=== PATIENT | male | born 1995 | race Caucasian/White ===

== ENCOUNTER 2023-04-30 00:38 | Emergency (ER) | payer SELFPAY ==
[2023-04-30 00:40] VITALS: BP 130/83; BMI 22.0
[2023-04-30 01:17] LABS: % Basophils 0.5 % (0-2); % Eosinophils 4.6 % (0-6); % Immature Granulocytes 0.3 % (0-0.5); % Lymphocytes 27.4 % (20.5-51.1); % Monocytes 13.1 % (1.7-9.3); % Neutrophils 54.1 % (42.2-75.2); Absolute Eosinophils 0.3 10^3/uL (0-0.7); Absolute Lymphocytes 1.7 10^3/uL (1.2-3.4); Absolute Monocytes 0.8 10^3/uL (0.1-0.6); Absolute Neutrophils 3.3 10^3/uL (1.4-6.5); Hematocrit 33.1 % (39.0-52.0); Hemoglobin 11.4 g/dL (13.0-18.0); Mean Corp Hgb Conc. 34.4 g/dL (33.0-37.0); Mean Corpuscular Hgb 28.9 pg (27.0-31.0); Mean Corpuscular Volume 83.8 fL (80.0-94.0); Mean Platelet Volume 9.9 fL (7.4-10.4); Nucleated Red Blood Cells % 0 % (-); Platelet Count 211 10^3/uL (130-400); Red Blood Cell Count 3.95 10^6/uL (4.70-6.10); Red Cell Dist. Width 13.2 % (11.5-14.5); White Blood Cell Count 6.1 10^3/uL (4.8-10.8)
[2023-04-30 01:52] LABS: ALT (SGPT) 31 U/L (0-50); AST (SGOT) 31 U/L (17-59); Albumin 3.5 g/dl (3.5-5.0); Alkaline Phosphatase 49 U/L (38-126); Blood Urea Nitrogen 4 mg/dl (9-20); Calcium 8.7 mg/dl (8.4-10.2); Carbon Dioxide 30 mmol/L (22-30); Chloride 102 mmol/L (98-107); Estimated Creatinine Clearance > 125 ml/min; Glucose 98 mg/dl (70-99); Potassium 3.5 mmol/L (3.5-5.1); Sodium 140 mmol/L (135-145); Total Bilirubin 0.4 mg/dl (0.2-1.3); Total Protein 6.1 g/dl (6.3-8.2); eGFR > 60.00
--- NOTE | 2023-04-30 02:15 | ED.GENMED ---
History of Present Illness
General
Chief Complaint: Fall
Source: patient
Exam Limitations: none
Time Seen by Provider: 04/30/23 00:54
Travel History
Have you had any contact with someone who has COVID-19?: No
Do you have any symptoms of coronavirus? Fever > 100 degrees, chills, cough, shortness of breath, sore throat, loss of taste or smell, muscle aches, or headache?: No
History of Present Illness
History of Present Illness:
27-year-old male presents with a left ankle injury. He states he twisted his ankle about a week ago. The patient admits he is homeless and walks a lot. He states he sometimes does not sleep at night and just walks. Patient states that the
swelling seemed to get worse. No fevers, no numbness, no tingling
Past History
Past History
ED Past Medical History: Psychiatric, Other (Optical Migraines, previous inguinal hernia repair) and Other (Drug and alcohol abuse)
ED Past Surgical History: None
Social History
Tobacco: Smoker
Alcohol: None
Personal: Single
Living: other (Staying with friends, soon to be homeless)
Family History
Family History: Negative Diabetes, Hypertension or CAD
Phy Exam
Physical Exam
Physical Exam:
CONSTITUTIONAL Vital signs reviewed, Patient alert and oriented to person, place and time. Well-appearing
HEAD atraumatic, normocephalic.
EYES eyelids normal to inspection, Extraocular muscles intact, Conjunctiva normal, Sclera normal.
NECK normal range of motion, Trachea midline, no jugular venous distention.
RESP no respiratory distress
BACK No obvious deformities
UPPER EXTREMITY Gross Range of motion normal, gross motor strength normal
LOWER EXTREMITY Gross range of motion normal, Gross motor strength normal. Bilateral lower extremity edema noted. Left greater than right. Moderate lateral and medial malleolus tenderness to left ankle. Normal distal pulses. Mild redness
throughout the left lower extremity
NEURO Speech normal, No focal motor deficits include, Eunice coma scale 15, Memory normal, Cranial Nerves intact to screening exam.
SKIN Skin warm, dry, and normal in color.
PSYCHIATRIC Patient oriented to person place and time, Normal affect.
Course
Orders/Labs/Results
Orders:
Orders
04/30/23 00:47
CR Ankle - Left Min 3 Views Urgent
Reason For Exam: fall, ankle swelling
04/30/23 01:09
Complete Blood Count/With Diff Urgent
Comprehensive Metabolic Panel Urgent
Abnormal Lab Results
04/30/23
01:09
RBC 3.95 L 10^6/uL
(4.70-6.10)
Hgb 11.4 L g/dL
(13.0-18.0)
Hct 33.1 L %
(39.0-52.0)
Absolute Monos (auto) 0.8 H 10^3/uL
(0.1-0.6)
Monocytes % 13.1 H %
(1.7-9.3)
BUN 4 L mg/dl
(9-20)
Creatinine 0.6 L mg/dL
(0.7-1.3)
Total Protein 6.1 L g/dl
(6.3-8.2)
04/30/23 01:09
04/30/23 01:09
Vital Signs
Initial and Last Documented VS:
Initial Vital Signs
Temp Pulse Resp BP Pulse Ox
98.2 F 71 18 130/83 98
04/30/23 00:40 04/30/23 00:40 04/30/23 00:40 04/30/23 00:40 04/30/23 00:40
Last Documented Vital Signs
Temp Pulse Resp BP Pulse Ox
98.2 F 71 18 130/83 98
04/30/23 00:40 04/30/23 00:40 04/30/23 00:40 04/30/23 00:40 04/30/23 00:40
MDM/Problems Addressed
MDM/Problems Addressed:
Lower extremity edema, ankle injury
*Radiology
Radiology exam reviewed: all reviewed NAD by ED Provider
*Pulse Oximetry
Patient hypoxic: no
*Critical Care Note
Total Time (30-74mins, 75-104mins- exclusive of procedures): Not Applicable
Data Reviewed
Source: patient
Patient Management
Escalation/DeEscalation of care consider admission/obs:
Patient appears well. Does have a swollen left and right lower extremity left greater than right. Suspect related to the trauma but given the mild redness, will cover with antibiotics as well. Torsten wrap for compression, air splint. Okay for
discharge
ED Attending Note
-
Portions of this chart may have been created with voice recognition software.� Occasional wrong word or��sound alike� substitutions may have occurred due to the inherent limitations of voice recognition software.
Discharge Plan
Departure
Patient Disposition: Home (Routine Discharge)
Date of Disposition: 04/30/23
Time of Disposition: 02:23
Patient with high blood pressure during this ER visit?: No
Discharge Problem:
Ankle injury, Edema
Instructions: Ankle Sprain (DC), Swelling
Prescriptions:
No Action
aripiprazole 10 MG tablet
15 mg PO DAILY
carbamazepine [Tegretol XR] 400 MG tablet extended release 12 hr
400 mg PO BID
Referrals:
[facility] [Outside]
NONE,* [Family Provider] -
Activity Restrictions/Additional Instructions:
Please elevate your legs when possible. Return for fevers, increased swelling, worsening symptoms or any other concerns. Please see the clinic in follow-up in the next 1 to 2 weeks.
Interventions
Interventions:
*Risk Screen - Suicide Last Done: 04/30/23 00:42
*General Assessment Last Done: 04/30/23 00:42
*Neglect/Abuse Screening Last Done: 04/30/23 00:42
*ED COVID-19 Vaccine History Last Done: 04/30/23 00:42
ED-Musculoskeletal Assessment Last Done: 04/30/23 00:44
ED- Neurological Assessment Last Done: 04/30/23 00:44
ED-Skin Assessment Last Done: 04/30/23 00:44
[2023-04-30] MEDS: KEFLEX 500 MG PO (02:35)
== END 2023-04-30 02:45 | disposition home or self-care (01) ==
LOC: EMR 00:38
PROVIDERS: EMERGENCY PHYSICIAN Emergency Medicine
DX: S99.912A Unspecified injury of left ankle, initial encounter (principal); X50.1XXA Overexertion from prolonged static or awkward postures, initial encounter; R60.0 Localized edema; F17.200 Nicotine dependence, unspecified, uncomplicated; Z59.00 Homelessness unspecified
CPT/HCPCS: 99284; 73610; 80053; 85025

== ENCOUNTER 2023-05-24 17:45 | Emergency (ER) | payer SELFPAY ==
[2023-05-24 17:49] VITALS: BP 107/71
[2023-05-24 18:08] LABS: % Basophils 0.8 % (0-2); % Eosinophils 4.5 % (0-6); % Immature Granulocytes 0.5 % (0-0.5); % Lymphocytes 27.5 % (20.5-51.1); % Monocytes 12.9 % (1.7-9.3); % Neutrophils 53.8 % (42.2-75.2); Absolute Basophils 0.1 10^3/uL (0-0.2); Absolute Eosinophils 0.3 10^3/uL (0-0.7); Absolute Lymphocytes 1.7 10^3/uL (1.2-3.4); Absolute Monocytes 0.8 10^3/uL (0.1-0.6); Absolute Neutrophils 3.3 10^3/uL (1.4-6.5); Hematocrit 39.4 % (39.0-52.0); Hemoglobin 13.2 g/dL (13.0-18.0); Mean Corp Hgb Conc. 33.5 g/dL (33.0-37.0); Mean Corpuscular Hgb 28.8 pg (27.0-31.0); Mean Corpuscular Volume 85.8 fL (80.0-94.0); Mean Platelet Volume 9.7 fL (7.4-10.4); Nucleated Red Blood Cells % 0 % (-); Platelet Count 192 10^3/uL (130-400); Red Blood Cell Count 4.59 10^6/uL (4.70-6.10); Red Cell Dist. Width 13.8 % (11.5-14.5)
[2023-05-24 18:28] LABS: ALT (SGPT) 49 U/L (0-50); AST (SGOT) 34 U/L (17-59); Albumin 4.2 g/dl (3.5-5.0); Alkaline Phosphatase 61 U/L (38-126); Blood Urea Nitrogen 12 mg/dl (9-20); Calcium 9.4 mg/dl (8.4-10.2); Carbon Dioxide 29 mmol/L (22-30); Chloride 104 mmol/L (98-107); Glucose 92 mg/dl (70-99); Potassium 4.3 mmol/L (3.5-5.1); Sodium 137 mmol/L (135-145); Total Bilirubin 0.7 mg/dl (0.2-1.3); eGFR > 60.00
--- NOTE | 2023-05-24 20:04 | ED.GENMED ---
History of Present Illness
General
Chief Complaint: Musculo-Skeletal Complaint
Source: patient and records
Exam Limitations: none
Time Seen by Provider: 05/24/23 19:42
Nursing documentation reviewed up to this point in time: agreed with
Travel History
Have you had any contact with someone who has COVID-19?: No
Do you have any symptoms of coronavirus? Fever > 100 degrees, chills, cough, shortness of breath, sore throat, loss of taste or smell, muscle aches, or headache?: No
History of Present Illness
History of Present Illness:
Patient is a 28-year-old male who was asleep when I entered the room and presents with sharp anterior chest pain that increased somewhat with breathing and has had a cough it has been nonproductive for the past 2 days. Patient sprained his ankle a
couple weeks ago and that seems to be getting better. Patient denies fever or chills. Patient states he is minimally short of breath. Patient denies any palpitations. Patient does smoke. Patient denies any weight changes. Patient denies any GI
or symptoms. Patient denies any recent illnesses. Patient states his ankle is feeling much better and outside of the ankle he has no leg pain or swelling.
Past History
Past History
ED Past Medical History: Other (Optical Migraines, previous inguinal hernia repair) and Other (Drug and alcohol abuse)
ED Past Surgical History: None
Social History
Tobacco: Smoker
Alcohol: None
Personal: Single
Living: other (Staying with friends, soon to be homeless)
Family History
Family History: Negative Diabetes, Hypertension or CAD
Review of Systems
Review of Systems
All Other Systems: ROS reviewed and negative except as documented in HPI and ROS
Constitutional: Reports no symptoms
EENT: Reports no symptoms
Respiratory: Reports cough and trouble breathing
Cardiac: Reports chest pain; Denies palpitations
ABD/GI: Reports no symptoms
: Reports no symptoms
Musculoskeletal: Reports joint pain (Left ankle); Denies edema
Skin: Reports no symptoms
Neurological: Reports no symptoms
Hematologic/Lymphatic: Reports no symptoms
Phy Exam
Physical Exam
Physical Exam:
Physical Exam
General: No apparent distress, alert and appropriate, well nourished, well hydrated
HENT: Normocephalic, supple with no lymphadenopathy, no thyromegaly
Eyes: Clear sclera, conjuctiva without injection
Heart: Regular rhythm and rate. No S3, S4. No murmur.
Lungs: No respiratory distress, no stridor, lung sounds clear and equal bilaterally, chest wall symmetrical and mildly reproducible tenderness without crepitus or deformity or subcutaneous emphysema
Abdomen: Soft, nontender, no organomegaly, BS good
Neuro: Alert and oriented x 3, CN II - XII intact, no motor focality, no cerebellar dysfunction
Skin: no rash
Psychiatric: well kept. interactive and cooperative
Extremities: No edema, cyanosis, tenderness
Scores
Heart Failure Risk
Heart Failure Risk Score: Not Applicable
Heart Score for Chest Pain Patients
STEMI patient?: Not applicable
Withdrawal Assessment of Alcohol
Withdrawal Assessment Completed?: Not applicable
Course
Orders/Labs/Results
Orders:
Orders
05/24/23 17:52
Electrocardiogram (*1) Urgent
Reason for Study: Chest Pain
EKG- Treatment ONCE
05/24/23 18:04
Complete Blood Count/With Diff Urgent
Comprehensive Metabolic Panel Urgent
05/24/23 20:06
CR Chest - 2 Views Urgent
Comment:
Reason For Exam: anterior chest pain
Abnormal Lab Results
05/24/23
18:04
RBC 4.59 L 10^6/uL
(4.70-6.10)
Absolute Monos (auto) 0.8 H 10^3/uL
(0.1-0.6)
Monocytes % 12.9 H %
(1.7-9.3)
05/24/23 18:04
05/24/23 18:04
Vital Signs
Initial and Last Documented VS:
Initial Vital Signs
Temp Pulse Resp BP Pulse Ox
98.0 F 92 16 107/71 98
05/24/23 17:49 05/24/23 17:49 05/24/23 17:49 05/24/23 17:49 05/24/23 17:49
Last Documented Vital Signs
Temp Pulse Resp BP Pulse Ox
98.0 F 92 16 107/71 98
05/24/23 17:49 05/24/23 17:49 05/24/23 17:49 05/24/23 17:49 05/24/23 17:49
*Radiology
Radiology exam reviewed: preliminary read by ED provider (Chest x-ray is unremarkable)
*Pulse Oximetry
Patient hypoxic: no
*Food Service Counter Clerk Interpretation
Rate: Food Service Counter Clerk- N/A
*Critical Care Note
Total Time (30-74mins, 75-104mins- exclusive of procedures): Not Applicable
ED Attending Note
-
Portions of this chart may have been created with voice recognition software.� Occasional wrong word or��sound alike� substitutions may have occurred due to the inherent limitations of voice recognition software.
Discharge Plan
Departure
Patient Disposition: Home (Routine Discharge)
Date of Disposition: 05/24/23
Time of Disposition: 21:04
Patient with high blood pressure during this ER visit?: No
Condition: Good
Covid-19: Not Applicable
Discharge Problem:
Musculoskeletal chest pain
Instructions: Muscle and Bone Pain (DC), Costochondritis (DC)
Prescriptions:
New
ketorolac 10 mg tablet
10 mg PO QID PRN (Reason: pain) Qty: 20 0RF
No Action
aripiprazole 10 MG tablet
15 mg PO DAILY
carbamazepine [Tegretol XR] 400 MG tablet extended release 12 hr
400 mg PO BID
Referrals:
UNKNOWN - PT DOES,NOT KNOW [Family Provider] -
Activity Restrictions/Additional Instructions:
Continue present medications and therapy. Make sure to take deep breaths few times a day.
Interventions
Interventions:
*Risk Screen - Suicide Last Done: 05/24/23 20:22
*General Assessment Last Done: 05/24/23 20:22
*Neglect/Abuse Screening Last Done: 05/24/23 20:22
*ED COVID-19 Vaccine History Last Done: 05/24/23 17:49
ED-Musculoskeletal Assessment Last Done: 05/24/23 20:22
Discharge Date and Time
Print Language: INDONESIAN
== END 2023-05-24 21:29 | disposition home or self-care (01) ==
LOC: EMR 17:45
PROVIDERS: Emergency Medicine; EMERGENCY PHYSICIAN Emergency Medicine
DX: R07.89 Other chest pain (principal); R05.9 Cough, unspecified; R06.02 Shortness of breath; F17.200 Nicotine dependence, unspecified, uncomplicated
CPT/HCPCS: 99285; 71046; 80053; 85025; 93005

== ENCOUNTER 2023-10-13 23:10 | Emergency (ER) | payer SELFPAY ==
[2023-10-13 23:15] VITALS: BP 114/63
--- NOTE | 2023-10-13 23:31 | EDRN ---
Spoke w/ crisis, per crisis, pt. denied suicidal ideation to them. Pt. told crisis that he needs rehab and 'help with my meds to feel better'. Pt. admitted to crisis that he drank '2 big bottles of alcohol' [employer]ING [employer]ACH[employer].
[2023-10-13 23:54] LABS: % Basophils 0.4 % (0-2); % Eosinophils 2.9 % (0-6); % Immature Granulocytes 0.2 % (0-0.5); % Lymphocytes 42.1 % (20.5-51.1); % Monocytes 9.1 % (1.7-9.3); % Neutrophils 45.3 % (42.2-75.2); Absolute Eosinophils 0.2 10^3/uL (0-0.7); Absolute Lymphocytes 3.5 10^3/uL (1.2-3.4); Absolute Monocytes 0.8 10^3/uL (0.1-0.6); Absolute Neutrophils 3.7 10^3/uL (1.4-6.5); Hematocrit 35.6 % (39.0-52.0); Hemoglobin 12.6 g/dL (13.0-18.0); Mean Corp Hgb Conc. 35.4 g/dL (33.0-37.0); Mean Corpuscular Hgb 28.9 pg (27.0-31.0); Mean Corpuscular Volume 81.7 fL (80.0-94.0); Mean Platelet Volume 9.6 fL (7.4-10.4); Nucleated Red Blood Cells % 0 % (-); Platelet Count 191 10^3/uL (130-400); Red Blood Cell Count 4.36 10^6/uL (4.70-6.10); Red Cell Dist. Width 13.3 % (11.5-14.5); White Blood Cell Count 8.2 10^3/uL (4.8-10.8)
--- NOTE | 2023-10-14 00:04 | ED.GENMED ---
History of Present Illness
General
Chief Complaint: Crisis Evaluation
Source: patient
Exam Limitations: none
Time Seen by Provider: 10/13/23 23:53
Nursing documentation reviewed up to this point in time: agreed with
History of Present Illness
History of Present Illness:
28-year-old male presents emergency department seeking crisis evaluation and rehab. He states several months ago he had suicidal ideation, he denies any at this time.
Past History
Past History
ED Past Medical History: Other (Optical Migraines, previous inguinal hernia repair) and Other (Drug and alcohol abuse)
ED Past Surgical History: None
Social History
Tobacco: Smoker
Alcohol: Daily
Drug: Marijuana
Personal: Single
Living: homeless
Family History
Family History: Negative Diabetes, Hypertension or CAD
Review of Systems
Review of Systems
Allergies reviewed?: Yes
All Other Systems: Not applicable
Constitutional: Reports no symptoms
EENT: Reports no symptoms
Respiratory: Reports no symptoms
Cardiac: Reports no symptoms
ABD/GI: Reports no symptoms
: Reports no symptoms
Musculoskeletal: Reports no symptoms
Skin: Reports no symptoms
Neurological: Reports no symptoms
Endocrine: Reports no symptoms
Hematologic/Lymphatic: Reports no symptoms
Psychiatric: Reports depression; Denies suicidal
Phy Exam
Physical Exam
Physical Exam:
Physical Exam
General: no apparent distress, not acutely ill
Neck: supple. no meningeal signs. normal posterior pharynx
Heart: s1/s2 regular rate and rhythm, no murmur. equal radial
pulses.
HEENT: Pupils equal round reactive to light, EOMI
Lungs: no acute respiratory distress. clear bilaterally
Abdomen: normal bowel sounds. not tender. no CVAT
Neuro: alert and oriented. no focal neurological deficits cranial nerves II through XII intact
Skin: no rash
Psychiatric: well kept. interactive and cooperative
Extremities: no edema. no calf tenderness. negative homans. good distal pulses
Course
Orders/Labs/Results
Orders:
Orders
10/13/23 23:28
Crisis Consult Urgent
Reason for Consult: suicidal ideation
10/13/23 23:41
Alcohol Urgent
Basic Metabolic Panel Urgent
Complete Blood Count/With Diff Urgent
Urine Drug Abuse Screen Urgent
Date Specimen was Collected: 10/13/23
Time Specimen was Collected: 23:28
Abnormal Lab Results
10/13/23
23:41
RBC 4.36 L 10^6/uL
(4.70-6.10)
Hgb 12.6 L g/dL
(13.0-18.0)
Hct 35.6 L %
(39.0-52.0)
Absolute Lymphs (auto) 3.5 H 10^3/uL
(1.2-3.4)
Absolute Monos (auto) 0.8 H 10^3/uL
(0.1-0.6)
U Marijuana (THC) Screen Positive H
(Negative)
10/13/23 23:41
10/13/23 23:41
Vital Signs
Initial and Last Documented VS:
Initial Vital Signs
Temp Pulse Resp BP Pulse Ox
98.2 F 92 20 114/63 97
10/13/23 23:15 10/13/23 23:15 10/13/23 23:15 10/13/23 23:15 10/13/23 23:15
Last Documented Vital Signs
Temp Pulse Resp BP Pulse Ox
98.2 F 90 16 118/70 98
10/13/23 23:15 10/14/23 00:58 10/14/23 00:58 10/14/23 00:58 10/14/23 00:58
MDM/Problems Addressed
Differential Diagnosis Includes:
Depression, alcohol abuse
MDM/Problems Addressed:
28-year-old male with alcohol abuse, marijuana use, homelessness. No indication for hospitalization. [facility] to see patient.
*Pulse Oximetry
Patient hypoxic: no
*Critical Care Note
Total Time (30-74mins, 75-104mins- exclusive of procedures): Not Applicable
Patient Management
Social determinants of health affecting care: Living situation and Substance abuse
Escalation/DeEscalation of care consider admission/obs:
Admit not indicated
Update Note
Update Note:
[facility] saw patient, no indication for rehab. Patient will be discharged upon improved sobriety.
ED Attending Note
-
Portions of this chart may have been created with voice recognition software.� Occasional wrong word or��sound alike� substitutions may have occurred due to the inherent limitations of voice recognition software.
Discharge Plan
Departure
Patient with high blood pressure during this ER visit?: No
Condition: Good
Discharge Problem:
Alcohol abuse
Instructions: Drug and Alcohol Abuse Information
Prescriptions:
No Action
aripiprazole 10 MG tablet
15 mg PO DAILY
carbamazepine [Tegretol XR] 400 MG tablet extended release 12 hr
400 mg PO BID
ketorolac 10 mg tablet
10 mg PO QID PRN (Reason: pain) Qty: 20 0RF
Activity Restrictions/Additional Instructions:
Return for any concerns.
Interventions
Interventions:
*Risk Screen - Suicide Last Done: 10/13/23 23:15
*General Assessment Last Done: 10/13/23 23:15
*Neglect/Abuse Screening Last Done: 10/13/23 23:15
ED- Fall Risk Assessment Last Done: 10/13/23 23:15
*ED COVID-19 Vaccine History Last Done: 10/13/23 23:15
ED- Neurological Assessment Last Done: 10/13/23 23:32
ED-Psychological Assessment Last Done: 10/13/23 23:32
Discharge Date and Time
Print Language: BENINESE
[2023-10-14 00:06] LABS: Alcohol 145 mg/dl; Blood Urea Nitrogen 13 mg/dl (9-20); Carbon Dioxide 22 mmol/L (22-30); Chloride 106 mmol/L (98-107); Glucose 92 mg/dl (70-99); Potassium 3.8 mmol/L (3.5-5.1); Sodium 141 mmol/L (135-145); eGFR > 60.00
[2023-10-14 00:10] LABS: Amphetamines Negative (Negative); Barbiturates Negative (Negative); Benzodiazepines Negative (Negative); Buprenorphine Negative (Negative); Cocaine Negative (Negative); Marijuana Positive (Negative); Methadone Negative (Negative); Methamphetamines Negative (Negative); Opiates Negative (Negative); Phencyclidine Negative (Negative); Tricyclic Antidepressants Negative (Negative)
[2023-10-14 00:58] VITALS: BP 118/70
[2023-10-14 02:55] VITALS: BP 120/78
[2023-10-14 05:49] VITALS: BP 115/64
== END 2023-10-14 06:13 | disposition home or self-care (01) ==
LOC: EMR 23:10
PROVIDERS: Emergency Medicine; EMERGENCY PHYSICIAN Emergency Medicine
DX: F10.10 Alcohol abuse, uncomplicated (principal); F32.A Depression, unspecified; F12.90 Cannabis use, unspecified, uncomplicated; Z59.00 Homelessness unspecified; G43.809 Other migraine, not intractable, without status migrainosus; F17.200 Nicotine dependence, unspecified, uncomplicated
CPT/HCPCS: 99283; 80048; 80306; 82077; 85025

== ENCOUNTER 2024-04-18 06:09 | Emergency (ER) | payer MEDICARE, SELFPAY ==
[2024-04-18 06:28] VITALS: BP 114/74
--- NOTE | 2024-04-18 08:38 | ED.GENMED ---
History of Present Illness
General
Chief Complaint: Musculo-Skeletal Complaint
Time Seen by Provider: 04/18/24 08:18
History of Present Illness
History of Present Illness:
28-year-old male with history of bipolar disorder presenting to the emergency department for head pain and right foot pain. Patient is disheveled, appears homeless. He notes that several weeks ago he struck his head on an air conditioner, denies
loss of consciousness. However has since had pain to the right parietal aspect of the head. Denies present visual changes. Denies focal weakness or numbness to extremities. Denies present chest pain or difficulty breathing. Denies abdominal
pain. Does also report right foot pain after he kicked something, and does not remember when. He has been ambulating. Denies additional acute medical complaints
Past History
Past History
ED Past Medical History: Other (Optical Migraines, previous inguinal hernia repair) and Other (Drug and alcohol abuse)
ED Past Surgical History: None
Social History
Tobacco: Smoker
Alcohol: Daily
Drug: Marijuana
Personal: Single
Living: homeless
Family History
Family History: Negative Diabetes, Hypertension or CAD
Phy Exam
Physical Exam
Physical Exam:
General: Disheveled, odiferous
HEENT: protecting airway
Neck: appears supple
CV: Normal heart rate
Resp: No accessory muscle use, no increased work of breathing
Abd: no distension
Extremities: No deformities, no swelling, no erythema, pulses and sensation intact. Range of motion to the right foot is intact. Generalized tenderness to the metacarpal bones without swelling or deformity.
Neuro: alert, no focal neurologic deficit
: deferred
Rectal: deferred
Psych: Normal affect
Skin: Intact
Course
Orders/Labs/Results
Orders:
Orders
04/18/24 08:32
CT Head W/o Iv Contrast Urgent
Comment:
Reason For Exam: struck head on air conditioner
04/18/24 08:39
Foot, Right 3 View [CR Foot - Right Min 3 Views] Urgent
Comment:
Reason For Exam: pain
Vital Signs
Initial and Last Documented VS:
Initial Vital Signs
Temp Pulse Resp BP Pulse Ox
97.8 F 92 24 114/74 98
04/18/24 06:28 04/18/24 06:28 04/18/24 06:28 04/18/24 06:28 04/18/24 06:28
Last Documented Vital Signs
Temp Pulse Resp BP Pulse Ox
97.8 F 92 24 114/74 98
04/18/24 06:28 04/18/24 06:28 04/18/24 06:28 04/18/24 06:28 04/18/24 06:28
MDM/Problems Addressed
MDM/Problems Addressed:
28-year-old male presenting for head pain and right foot pain after an injury. Vital signs normal.
On exam patient is resting comfortably, no acute distress or discomfort. No physical signs of trauma. Regarding patient's head pain, suspect likely component of postconcussive syndrome. No focal neurologic deficits with lower suspicion for
serious intracranial abnormality. Given duration of symptoms however, will obtain CT brain imaging. Regarding right foot pain, again no signs of trauma. No signs of infection. No neurovascular compromise. Suspect musculoskeletal strain. Will
obtain x-ray to ensure no fracture.
09:20 - CT and x-ray without acute abnormality. Feel stable for discharge with continued outpatient supportive therapy. Return precautions discussed and patient verbalized understanding
*Critical Care Note
Total Time (30-74mins, 75-104mins- exclusive of procedures): Not Applicable
ED Attending Note
-
Portions of this chart may have been created with voice recognition software.� Occasional wrong word or��sound alike� substitutions may have occurred due to the inherent limitations of voice recognition software.
Discharge Plan
Departure
Patient with high blood pressure during this ER visit?: No
Condition: Good
Instructions: Minor Head Injury (DC), Foot Sprain ED
Prescriptions:
No Action
aripiprazole 10 MG tablet
15 mg PO DAILY
carbamazepine [Tegretol XR] 400 MG tablet extended release 12 hr
400 mg PO BID
ketorolac 10 mg tablet
10 mg PO QID PRN (Reason: pain) Qty: 20 0RF
Referrals:
NONE,* [Family Provider] -
Activity Restrictions/Additional Instructions:
You were seen in the emergency department for head pain and foot pain
You were found to have normal CT imaging of your head, and x-ray imaging of your foot.
Please follow-up closely with your primary care physician.
Return to the emergency department for any worsening of your symptoms, or any development of chest pain, difficulty breathing, abdominal pain with persistent vomiting and inability to tolerate food or liquid by mouth (concern for dehydration),
weakness, headache or confusion, fever greater than 100.4, or any additional symptoms that are concerning to you.
Thank you for choosing [facility].
Interventions
Interventions:
*Risk Screen - Suicide Last Done: 04/18/24 06:28
*Neglect/Abuse Screening Last Done: 04/18/24 06:28
ED-Musculoskeletal Assessment Last Done: 04/18/24 08:17
ED- Neurological Assessment Last Done: 04/18/24 08:17
ED-Skin Assessment Last Done: 04/18/24 08:17
Discharge Date and Time
Print Language: KOSOVAN
[2024-04-18] MEDS: MOTRIN 600 MG PO (09:48)
== END 2024-04-18 10:07 | disposition home or self-care (01) ==
LOC: EMR 06:09
PROVIDERS: EMERGENCY PHYSICIAN Student in an Organized Health Care Education/Training Program
DX: M79.671 Pain in right foot (principal); R51.9 Headache, unspecified; S09.90XA Unspecified injury of head, initial encounter; W22.8XXA Striking against or struck by other objects, initial encounter; F31.9 Bipolar disorder, unspecified; F17.200 Nicotine dependence, unspecified, uncomplicated; Z59.00 Homelessness unspecified
CPT/HCPCS: 99284; 70450; 73630

== ENCOUNTER 2024-06-03 20:46 | Emergency (ER) | payer MEDICARE, SELFPAY ==
[2024-06-03 20:50] VITALS: BP 114/73
[2024-06-03 21:08] LABS: % Basophils 0.4 % (0-2); % Eosinophils 3.4 % (0-6); % Immature Granulocytes 0.3 % (0-0.5); % Lymphocytes 27.8 % (20.5-51.1); % Monocytes 10.6 % (1.7-9.3); % Neutrophils 57.5 % (42.2-75.2); Absolute Eosinophils 0.2 10^3/uL (0-0.7); Absolute Monocytes 0.8 10^3/uL (0.1-0.6); Absolute Neutrophils 4.1 10^3/uL (1.4-6.5); Hematocrit 40.5 % (39.0-52.0); Hemoglobin 13.8 g/dL (13.0-18.0); Mean Corp Hgb Conc. 34.1 g/dL (33.0-37.0); Mean Corpuscular Hgb 28.1 pg (27.0-31.0); Mean Corpuscular Volume 82.5 fL (80.0-94.0); Mean Platelet Volume 9.7 fL (7.4-10.4); Nucleated Red Blood Cells % 0 % (-); Platelet Count 215 10^3/uL (130-400); Red Blood Cell Count 4.91 10^6/uL (4.70-6.10); Red Cell Dist. Width 13.6 % (11.5-14.5); White Blood Cell Count 7.1 10^3/uL (4.8-10.8)
[2024-06-03 21:23] LABS: ALT (SGPT) 28 U/L (0-50); AST (SGOT) 33 U/L (17-59); Albumin 4.1 g/dl (3.5-5.0); Alkaline Phosphatase 60 U/L (38-126); Blood Urea Nitrogen 10 mg/dl (9-20); Calcium 9.4 mg/dl (8.4-10.2); Carbon Dioxide 30 mmol/L (22-30); Chloride 102 mmol/L (98-107); Glucose 116 mg/dl (70-99); Lipase 135 U/L (23-300); Potassium 4.1 mmol/L (3.5-5.1); Sodium 141 mmol/L (135-145); Total Bilirubin 0.6 mg/dl (0.2-1.3); Total Protein 6.8 g/dl (6.3-8.2); eGFR > 60.00
[2024-06-03 21:28] VITALS: BMI 19.7
[2024-06-03 21:29] VITALS: BP 117/69
--- NOTE | 2024-06-03 21:35 | ED.GENMED ---
History of Present Illness
General
Chief Complaint: Abdominal Symptoms
Source: patient
Exam Limitations: none
Time Seen by Provider: 06/03/24 21:17
History of Present Illness
History of Present Illness:
29-year-old male currently homeless presents complaining of abdominal discomfort and difficulty moving his bowels for the past 5 days. He states he had a strain but he had several small bowel movements today. He denies vomiting or fever. No prior
abdominal surgical history. No other complaints at this time
Past History
Past History
ED Past Medical History: Other (Optical Migraines, previous inguinal hernia repair) and Other (Drug and alcohol abuse)
ED Past Surgical History: None
Social History
Tobacco: Smoker
Alcohol: Daily
Drug: Marijuana
Personal: Single
Living: homeless
Family History
Family History: Negative Diabetes, Hypertension or CAD
Phy Exam
Physical Exam
Physical Exam:
General: Unkempt male no acute respiratory distress HEENT: Normocephalic atraumatic
Heart: Regular rate and rhythm no murmurs lungs: Clear no wheeze
Abdomen is soft nondistended nontender no guarding or rebound
Extremities: No cyanosis
Course
Orders/Labs/Results
Orders:
Orders
06/03/24 21:01
Complete Blood Count/With Diff Urgent
Comprehensive Metabolic Panel Urgent
Lipase Urgent
06/03/24 21:32
CR Obstruct Series W/pa Chest Urgent
Comment:
Reason For Exam: abdominal pain, constipation
06/03/24 23:00
Urinalysis Reflex To Culture Urgent
Date Specimen was Collected: 06/03/24
Time Specimen was Collected: 20:56
Urine Microscopic Reflex Cult Urgent
Urine Culture Urgent
JAZMYNE Source: U
Specimen Description:
Date Specimen was Collected: 06/03/24
Time Specimen was Collected: 20:56
06/03/24 23:27
Magnesium Citrate [Citroma] 300 ml PO ONCE ONE
Abnormal Lab Results
06/03/24 06/03/24
21:01 23:00
Absolute Monos (auto) 0.8 H 10^3/uL
(0.1-0.6)
Monocytes % 10.6 H %
(1.7-9.3)
Creatinine 0.6 L mg/dL
(0.7-1.3)
Glucose 116 H mg/dl
(70-99)
Leukocyte Esterase Rfl 1+ A
(Negative)
Urine Bacteria (Reflex) Few A
(Negative)
06/03/24 21:01
06/03/24 21:01
Vital Signs
Initial and Last Documented VS:
Initial Vital Signs
Temp Pulse Resp BP Pulse Ox
97.9 F 101 20 114/73 97
06/03/24 20:50 06/03/24 20:50 06/03/24 20:50 06/03/24 20:50 06/03/24 20:50
Last Documented Vital Signs
Temp Pulse Resp BP Pulse Ox
97.9 F 84 20 95/51 97
06/03/24 20:50 06/03/24 21:29 06/03/24 20:50 06/04/24 00:04 06/04/24 00:04
MDM/Problems Addressed
Differential Diagnosis Includes:
Patient with constipation and abdominal discomfort relatively benign exam. No vomiting. Vital signs stable. Obstruction series pending.
*Critical Care Note
Total Time (30-74mins, 75-104mins- exclusive of procedures): Not Applicable
Update Note
Update Note:
Workup here shows moderate mount of stool in the colon but no sign of obstruction. Labs reviewed without significant finding urinalysis negative. Will treat for constipation with magnesium citrate. No indication for admission. Stable for
discharge
ED Attending Note
-
Portions of this chart may have been created with voice recognition software.� Occasional wrong word or��sound alike� substitutions may have occurred due to the inherent limitations of voice recognition software.
Discharge Plan
Departure
Patient Disposition: Home (Routine Discharge)
Date of Disposition: 06/04/24
Time of Disposition: 00:17
Patient with high blood pressure during this ER visit?: No
Discharge Problem:
Constipation
Instructions: Constipation, Adult (DC)
Prescriptions:
No Action
aripiprazole 10 MG tablet
15 mg PO DAILY
carbamazepine [Tegretol XR] 400 MG tablet extended release 12 hr
400 mg PO BID
ketorolac 10 mg tablet
10 mg PO QID PRN (Reason: pain) Qty: 20 0RF
Referrals:
UNKNOWN - PT DOES,NOT KNOW [Family Provider] -
Activity Restrictions/Additional Instructions:
Use magnesium citrate as directed. Drink plenty of fluids. Consider using stool softeners like MiraLAX. Return if needed
Interventions
Interventions:
*Risk Screen - Suicide Last Done: 06/03/24 20:50
*General Assessment Last Done: 06/03/24 20:50
*Neglect/Abuse Screening Last Done: 06/03/24 20:50
*ED- Fall Risk Assessment Last Done: 06/03/24 20:50
*ED COVID-19 Vaccine History Last Done: 06/03/24 20:50
EQ-Ztzpbp-Tazhaxafvb Assessment Last Done: 06/03/24 21:31
Discharge Date and Time
Print Language: AZERI
[2024-06-03 23:02] VITALS: BP 100/59
[2024-06-03 23:08] LABS: Urine Albumin Negative (Neg - Trace); Urine Bilirubin Negative (Negative); Urine Character Clear (Clear); Urine Color Yellow; Urine Glucose Negative (Negative); Urine Ketone Negative (Negative); Urine Leukocyte 1+ (Negative); Urine Nitrite Negative (Negative); Urine Occult Blood Negative (Negative); Urine Urobilinogen Negative (Neg - 1+)
[2024-06-03 23:14] LABS: Urine Bacteria Few (Negative); Urine Mucus Few; Urine Red Blood Cell 0-2 /HPF (0-2); Urine Squamous Cell 0-2 /LPF (Few)
[2024-06-03] MEDS: CITROMA 300 ML PO (23:55)
[2024-06-04 00:04] VITALS: BP 95/51
== END 2024-06-04 01:01 | disposition home or self-care (01) ==
LOC: EMR 20:46
PROVIDERS: Emergency Medicine; EMERGENCY PHYSICIAN Emergency Medicine
DX: K59.00 Constipation, unspecified (principal); F17.200 Nicotine dependence, unspecified, uncomplicated; Z59.00 Homelessness unspecified
CPT/HCPCS: 99284; 74022; 80053; 81003; 81015; 83690; 85025; 87086